=== PATIENT | female | born 1990 | race Caucasian/White ===

== ENCOUNTER 2016-11-14 20:49 | Outpatient (CLI) | payer MEDICAID ==
[~2016-11-14] VITALS: Ht 154.9 cm; Wt 94.0 kg
[2016-11-14 21:15] LABS: DAU SCREEN DISCLAIMER
[2016-11-14 21:44] VITALS: BP 130/74
== END 2016-11-14 22:30 | disposition home or self-care (01) ==
LOC: LDOP 20:49
PROVIDERS: ATTEND Obstetrics & Gynecology
DX: O60.03 Preterm labor without delivery, third trimester (principal); O62.9 Abnormality of forces of labor, unspecified; O26.893 Other specified pregnancy related conditions, third trimester; O36.8130 Decreased fetal movements, third trimester, not applicable or unspecified; O99.513 Diseases of the respiratory system complicating pregnancy, third trimester; O99.343 Other mental disorders complicating pregnancy, third trimester; J45.909 Unspecified asthma, uncomplicated; F32.9 Major depressive disorder, single episode, unspecified; R10.9 Unspecified abdominal pain; Z3A.32 32 weeks gestation of pregnancy
CPT/HCPCS: 59025; 76817; 80307; 81001; 87086; 99201; G0463

== ENCOUNTER 2016-11-28 17:45 | Outpatient (CLI) | payer MEDICAID ==
[~2016-11-28] VITALS: Ht 156.2 cm; Wt 98.1 kg
[2016-11-28 17:53] VITALS: BP 105/58
[2016-11-28 18:17] LABS: DAU SCREEN DISCLAIMER
== END 2016-11-28 20:30 | disposition home or self-care (01) ==
LOC: LDOP 17:45
PROVIDERS: ATTEND Obstetrics & Gynecology
DX: O26.893 Other specified pregnancy related conditions, third trimester (principal); R10.2 Pelvic and perineal pain; O48.0 Post-term pregnancy; O99.343 Other mental disorders complicating pregnancy, third trimester; O99.513 Diseases of the respiratory system complicating pregnancy, third trimester; O99.333 Smoking (tobacco) complicating pregnancy, third trimester; J45.909 Unspecified asthma, uncomplicated; F32.9 Major depressive disorder, single episode, unspecified; Z3A.42 42 weeks gestation of pregnancy
CPT/HCPCS: 59025; 80307; 81003; 99211; G0463

== ENCOUNTER 2016-12-10 13:13 | Outpatient (CLI) | payer MEDICAID ==
[~2016-12-10] VITALS: Ht 156.2 cm; Wt 99.1 kg
[2016-12-10 14:09] VITALS: BP 117/63
[2016-12-10 14:33] LABS: DAU SCREEN DISCLAIMER
== END 2016-12-10 15:51 | disposition home or self-care (01) ==
LOC: LDOP 13:13
PROVIDERS: ATTEND Obstetrics & Gynecology
DX: O42.913 Preterm premature rupture of membranes, unspecified as to length of time between rupture and onset of labor, third trimester (principal); O99.343 Other mental disorders complicating pregnancy, third trimester; F32.9 Major depressive disorder, single episode, unspecified; O99.333 Smoking (tobacco) complicating pregnancy, third trimester; F17.200 Nicotine dependence, unspecified, uncomplicated; Z3A.36 36 weeks gestation of pregnancy
CPT/HCPCS: 59025; 80307; 81003; 89060; 99211; G0463; Q0114

== ENCOUNTER 2016-12-18 04:07 | Outpatient (CLI) | payer MEDICAID ==
[~2016-12-18] VITALS: Ht 156.2 cm; Wt 99.1 kg
== END 2016-12-18 06:00 | disposition home or self-care (01) ==
LOC: LDOP 04:07
PROVIDERS: ATTEND Obstetrics & Gynecology
DX: O26.893 Other specified pregnancy related conditions, third trimester (principal); O42.913 Preterm premature rupture of membranes, unspecified as to length of time between rupture and onset of labor, third trimester; O99.333 Smoking (tobacco) complicating pregnancy, third trimester; R10.9 Unspecified abdominal pain; F17.200 Nicotine dependence, unspecified, uncomplicated; Z3A.36 36 weeks gestation of pregnancy
CPT/HCPCS: 59025; 81001; 87081; 87086; 87147; 89060; 99211; G0463; Q0114